=== PATIENT | female | born 2000 | race Caucasian/White ===

== ENCOUNTER → 2025-07-20 08:45 | Outpatient (BNV) | payer MEDICARE, MEDICAID, SELFPAY | PROVIDERS: Visit Provider Registered Nurse | DX: F33.9 Major depressive disorder, recurrent, unspecified (principal); F41.1 Generalized anxiety disorder; F43.10 Post-traumatic stress disorder, unspecified; F90.9 Attention-deficit hyperactivity disorder, unspecified type | CPT/HCPCS: 90792 ==

== ENCOUNTER 2025-07-25 08:36 | Outpatient (REF) | payer MEDICARE, MEDICAID, SELFPAY ==
--- NOTE | 2025-07-25 08:43 | ECG_ITS ---
Test Reason : qtc check Blood Pressure : */* mmHG Vent. Rate : 95 BPM Atrial Rate : 95 BPM P-R Int : 122 ms QRS Dur : 70 ms QT Int : 344 ms P-R-T Axes : 76 61 77 degrees QTcB Int : 432 ms Normal sinus rhythm Normal ECG No previous ECGs available Referred By: Bettye Chung Electronically Signed By: DIONE ZAMUDIO
--- OUTSIDE RECORDS SUMMARY | 2025-07-25 09:03 | XMS_ITS ---
Author Name [facility] Organization Unknown Care Team Organization Name Specialty Phone Email Start Date End Da te [facility] ACO 06/14/2025 [facility] Ameena Ugalde Primary [facility] 07/02/2023 024 [facility] Jessica Neely Primary [facility] 11/03/2022
[2025-07-25 09:08] LABS: MANUAL DIFF FLAG NO
[2025-07-25 09:16] LABS: Hematocrit 39.1 % (37.0-47.0); Hemoglobin 13.2 g/dl (12.0-16.0); Imm Gran Abs Auto 0.04 X10*3/uL (0.00-0.03); Imm Gran Pct Auto 0.4 % (0.0-0.4); Lymphocytes Absolute Auto 1.7 X10*3/uL (1.2-4.9); Mean Corpuscular HGB Conc 33.8 g/dl (31.0-35.0); Mean Corpuscular Hemoglobin 30.1 pg (27.0-33.0); Mean Corpuscular Volume 89.1 fL (80.0-98.0); NRBC Abs Auto 0.000 X10*3/uL (0.0-0.012); NRBC Pct Auto 0.0 /100WBC (0.0-0.2); Platelet Count 234 X10*3/uL (160-400); Red Blood Count 4.39 X10*6/uL (4.20-5.50); White Blood Count 9.9 X10*3/uL (4.8-10.8)
[2025-07-25 10:01] LABS: Alanine Aminotransferase 19 U/L (0-31); Albumin Level 5.0 g/dL (3.5-5.0); Alkaline Phosphatase 43 U/L (39-117); Anion Gap 10 (12-20); Aspartate Amino Transferase 19 U/L (5-31); Blood Urea Nitrogen 8 mg/dL (9-16); Calcium 9.5 mg/dL (8.4-10.2); Carbon Dioxide 26 mmol/L (22-29); Chloride 107 mmol/L (96-108); Cholesterol 145 mg/dL (<200); Estimated Glomerular Filt Rate > 60; HDL Cholesterol 37 mg/dL (>40); Iron 88 mcg/dL (30-160); Magnesium 1.9 mg/dL (1.6-2.6); Percent Iron Saturation 31 % (15-50); Potassium 4.0 mmol/L (3.3-5.1); Sodium 139 mmol/L (135-145); Total Iron Binding Capacity 284 mcg/dL (228-428); Total Protein 7.7 g/dL (6.5-8.0); Triglycerides 92 mg/dL (<150); Unsaturated Iron Binding 196 ug/dL
[2025-07-25 10:13] LABS: Syphilis Screen Nonreactive (Nonreactive)
[2025-07-25 10:15] LABS: HBS Num1 0.29 mIU/mL (0-7.99); HBc Num1 0.07 S/CO (0.00-0.79); HBsAGNum1 0.35 S/CO (0.00-0.99); HIV Num 1 0.05 S/CO (0.00-0.99); Hepatitis B Surface Antigen Negative (Negative); ~HepC Num1 0.08 S/CO (0.00-0.79); ~Hepatitis B Surface Antibody NONREACTIVE (Nonreactive); ~Hepatitis C Antibody Nonreactive (Nonreactive)
[2025-07-25 10:16] LABS: Free T4 (Free Thyroxine) 0.95 ng/dL (0.71-1.85); Thyroid Stimulating Hormone 0.68 uIU/mL (0.32-4.0)
[2025-07-25 10:24] LABS: Appearance Urine Clear; Glucose Urine UA Negative (Negative); PH 5.5 (5.0-9.0); Specific Gravity - Urine 1.020 (1.005-1.025)
[2025-07-25 10:27] LABS: UPreg QC Valid YES
[2025-07-25 10:28] LABS: Folate 14.0 ng/mL (> or = 4.0); Vitamin B12 466 pg/mL (200-900)
[2025-07-25 11:34] LABS: CT PCR Urine NOT DETECTED (Not Detect.); NG PCR Urine NOT DETECTED (Not Detect.)
== END 2025-07-25 08:37 | disposition home or self-care (01) ==
LOC: HO.LAB 08:36
PROVIDERS: Visit Provider Psychiatry & Neurology Psychiatry
DX: Z13.6 Encounter for screening for cardiovascular disorders (principal); F39 Unspecified mood [affective] disorder; Z13.1 Encounter for screening for diabetes mellitus; Z11.4 Encounter for screening for human immunodeficiency virus [HIV]; Z20.2 Contact with and (suspected) exposure to infections with a predominantly sexual mode of transmission
CPT/HCPCS: 80053; 80061; 81003; 81025; 82306; 82607; 82746; 83036; 83090; 83540; 83735; 84425; 84439; 84443; 85025; 85652; 86704; 86706; 86780; 86803; 87340; 87389; 87491; 87591; 93005

== ENCOUNTER → 2025-07-25 08:43 | Outpatient (BNV) | payer MEDICARE, MEDICAID, SELFPAY | PROVIDERS: Visit Provider Internal Medicine | DX: Z13.6 Encounter for screening for cardiovascular disorders (principal) | CPT/HCPCS: 93010 ==

== ENCOUNTER 2025-08-10 08:45 | Outpatient (RCR) | payer MEDICARE, MEDICAID, SELFPAY ==
[2025-07-17 12:01] VITALS: BMI 24.0
[2025-07-17 12:02] VITALS: BP 88/58; PULSE 64; TEMP 37.1
--- NOTE | 2025-07-17 14:43 | PC.ADMIT ---
Patient is a 25 year old single female who self referred to [facility] secondary to increased depression and anxiety since recent break up with her boyfriend of two years whom she lived with most of the time. Stated she thinks about the break up all the time and feels overwhelmed. Stated she feels she lost herself in the process. Patient is alert and oriented x4. She is calm and cooperative. She presented with depressed mood and anxious affect. She denied SI, no HI. She was given a copy of her safety plan if needed. Medications updated with patient and patient's pharmacy. Patient reports taking medications as prescribed. Patient reports using marijuana daily. Does not want to stop using at this time. Patient has a job interview after program today. Living with mother and grandmother and two brothers and his girlfriend. Stated she normally lives with her aunt however she is staying with her mother temporarily for more support.
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
--- NOTE | 2025-07-20 15:19 | HO.PHP ---
Client's case was opened and reviewed in teams.
--- NOTE | 2025-07-24 15:15 | HO.PHP ---
Mold Checker spoke with [facility]- intake appointment for therapy set up for 07/27 at 1500 Mold Checker spoke with Marylin, she is aware of the appointment and reported that she is hopeful to starting treatment.
--- NOTE | 2025-07-26 19:55 | HO.PS.ADMBH ---
HPI Date of Service: 07/24/25 Chief Complaint: anxiety,depression Sources of Information: patient interviewed, chart reviewed and crisis/core team assessment reviewed HPI Past Psychiatric History: Denies history of inpatient psychiatric hospitalizations. Denies history of SA/SIB. Does not have outpatient psychiatric providers at this time. [facility] Medical History (Updated 07/24/25 @ 08:33 by Kinga Go, RN) Factor 5 Leiden mutation, heterozygous Fatty liver Asthma Sleep apnea Lumbar degenerative disc disease Diet-controlled diabetes mellitus Surgical History (Updated 07/17/25 @ 11:59 by Kinga Go RN) Hx of cholecystectomy History of discectomy History of tonsillectomy and adenoidectomy Family History: Grandma(maternal)- schizophrenia Brother-schizophrenia Father- bipolar ( when patient was 11y/o from leukemia) Social History: Lives with aunt. Single. No kids. Unemployed. Highest level of education completed 9th grade. Did not obtain GED. Trauma History: Yes Diagnostics Vital Signs (24Hr): BMI result Body Mass Index 24.0 Meds/Allergies Meds Home Medications ?Medication ?Instructions ?Recorded ?Confirmed ?Type hydroxyzine HCl 25 mg tablet 25 mg PO QID PRN anxiety 07/17/25 07/17/25 History nitrofurantoin 1 cap PO BID 07/17/25 07/17/25 History monohydrate/macrocrystals 100 mg capsule Allergies Allergies Allergy/AdvReac Type Severity Reaction Status Date / Time shellfish derived (shellfish) Allergy Hives,faint Verified 07/17/25 12:01 . Assessment & Plan Certification I certify that partial hospital treatment is medically necessary due to the symptoms and problems resulting from the patient's mental illness and the failure to treat the patient at the partial hospital level of care would likely result in the patient requiring inpatient psychiatric care which could not be prevented at a less intensive level of care. Time Spent With Patient Time: Total time managing care of this patient today ____ minutes.
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
--- NOTE | 2025-07-27 13:07 | PC.NURSE ---
Patient made a new PCP appointment with [facility] at [address] [place] [address], [place], [place]. with Dr. Orlando Lopez on September 07, 2025 at 1:00pm. Office Number [phone].
--- NOTE | 2025-08-04 12:01 | P.PNPSP_ITS ---
Subjective Subjective Date of Service: 08/03/25 Reason For Visit: anxiety,depression Interim History: Patient reporting anxiety is severe, lots of body complaints, shakiness, nausea due to heart racing. Impacting appetite, been difficult to eat. Is visibly shaky, hydroxyzine not helping if increase dose gets sleepy and still anxious. Had a panic attack this morning, common occurence. COntinues with emotional dysreuglation, mood swings, irritability, tearfulness. DEnies any h/h/SI. No thoughts of SIB. Sleep variable. She still has not started on ABilify, but finally picked it up this morning and will start at 1/2 tablet and increas as tolerated. SHe has history of asthma but this is stable, so will start prn propanolol to help with racing heart. If still struggling may take a clonazepam 1/2 tablet. Risk, benefit, side effects reviewed. Avoid alcohol patient denies any alcohol or substance use aside from regular cannabis use. Medication Compliance: No Side effects from medications: No Attending Groups: Yes Review of Systems Acute medical concerns: No Mental Status Exam Mental Status Exam Patient Appearance: Well Grooomed Patient Orientation: Person, Place, Time and Situation Level of Consciousness: Awake and Alert Patient Behavior: Appropriate, Cooperative and Good Eye Contact Mood Description: Depressed and Anxious Affect Description: Apprehensive Ability to Follow Directions: Good Speech Pattern: Clear Memory Description: Intact Thought Process: Racing and Rumination Thought Content: positive for Circumstantial Depressive Symptoms: Increased Anxiety Judgement: Good Diagnostics Vital Signs (24Hr): Vital Signs - 24 hr 08/04/25 12:59 Pulse Rate 84 Blood Pressure 100/68 BMI result Body Mass Index 24.0 Assessment & Plan Assessment & Plan (1) MDD (major depressive disorder), recurrent episode: Status: Acute Code(s): F33.9 - Major depressive disorder, recurrent, unspecified (2) HAILEE (generalized anxiety disorder): Status: Acute Code(s): F41.1 - Generalized anxiety disorder (3) PTSD (post-traumatic stress disorder): Status: Acute Code(s): F43.10 - Post-traumatic stress disorder, unspecified (4) ADHD: Status: Acute Code(s): F90.9 - Attention-deficit hyperactivity disorder, unspecified type Plan Patient is a 25-year-old female with hx of MDD, HAILEE, PTSD and ADHD, who self- referred to [facility] due to increased depression and anxiety secondary to a romantic relationship ending 2 weeks ago. Plan: start Abilify at 1 mg then increase to 2 mg qd start propranolol 5 mg BID, consider incr to 10 mg BID if tolerated offer clonazepam 0.25-0.5 mg prn anxiety attack, for next few days, will not continue on once ABilify therapeutic engage in milieu continue to monitor Patient educated on: diagnosis and medication risk/benefits Informed Consent: understands Reason for contiued partial hosp. stay Substantial Risk for: inability to function and med/psych decompensation Certification I certify that partial hospital treatment is medically necessary due to the symptoms and problems resulting from the patient's mental illness and the failure to treat the patient at the partial hospital level of care would likely result in the patient requiring inpatient psychiatric care which could not be prevented at a less intensive level of care. Total time managing care of this patient today _30___ minutes. Discharge Plan Discharge Attending provider: Bettye Chung Additional Instructions: New PCP appointment with [facility] at [address] [place] [address] Orlando Lopez on September 07, 2025 at 1:00pm. Office Number [phone]. Medications: New cholecalciferol (vitamin D3) [Vitamin D3] 125 mcg (5,000 unit) tablet 125 mcg PO DAILY Qty: 30 2RF aripiprazole 5 mg tablet 5 mg PO BEDTIME Qty: 30 0RF Continued aripiprazole 2 mg tablet 2 mg PO BEDTIME Qty: 30 0RF Changed propranolol 10 mg tablet 5 mg PO TID Qty: 30 0RF Discontinued hydroxyzine HCl 25 mg tablet 25 mg PO QID PRN (Reason: anxiety) nitrofurantoin monohyd/m-cryst 100 mg capsule 1 cap PO BID Rx Instructions: TAKE 1 CAPSULE BY MOUTH TWICE A DAY FOR 5 DAYS Stand Alone Forms: Patient Portal Discharge page Patient Education: Mood Disorders (ED), Mood Disorders (DC), PTSD (Post Traumatic Stress Disorder) (DC), Anxiety (ED) Print Language: Gambian
[2025-08-04 12:59] VITALS: BP 100/68; PULSE 84
--- NOTE | 2025-08-09 16:46 | HO.PHPPROGNO ---
Subjective Subjective Date of Service: 08/08/25 Reason For Visit: anxiety,depression Interim History: Patient seen for follow-up. She is wondering if the medicaiton could work this quickly, feeling more regulated, not as quickly tearful or irritable. Denies any side effects. ANxiety still high. She picked up both clonazepam and propranolol has not yet started either med but will do so today. Forgot how to take the propranolol and clonazepam and asked for clarification. at this point will not start clonazepam, as patient is not really interested, seeing as she has been feeling a little calmer. Denies any thoughts of harming self or others. Medication Compliance: Intermittent Side effects from medications: No Attending Groups: Yes Review of Systems Acute medical concerns: No Mental Status Exam Mental Status Exam Narrative: Alert, oriented, in no acute distress. Calm, cooperative, engaged. No psychomotor agitation or neurovegetative retardation. Eye contact maintained. Mood anxious, affect variable, brighter mood congruent. Speech normal. Thought process linear, coherent. Thought content related to stressors, denies any hopelessness or SI. Denies any aggressive ideation or HI. No paranoia or delusional content elicited. No evidence of psychosis. Insight and judgment - fair but adequate. Patient Appearance: Well Grooomed Patient Orientation: Person, Place, Time and Situation Level of Consciousness: Awake and Alert Patient Behavior: Appropriate, Cooperative and Good Eye Contact Mood Description: Depressed and Anxious Affect Description: Appropriate Ability to Follow Directions: Good Speech Pattern: Clear Memory Description: Intact Diagnostics Vital Signs (24Hr): BMI result Body Mass Index 24.0 Assessment & Plan Assessment & Plan (1) MDD (major depressive disorder), recurrent episode: Status: Acute Code(s): F33.9 - Major depressive disorder, recurrent, unspecified (2) HAILEE (generalized anxiety disorder): Status: Acute Code(s): F41.1 - Generalized anxiety disorder (3) PTSD (post-traumatic stress disorder): Status: Acute Code(s): F43.10 - Post-traumatic stress disorder, unspecified (4) ADHD: Status: Acute Code(s): F90.9 - Attention-deficit hyperactivity disorder, unspecified type Plan Patient is a 25-year-old female with hx of MDD, HAILEE, PTSD and ADHD, who self-referred to [facility] due to increased depression and anxiety secondary to a romantic relationship ending 2 weeks ago. Plan: increase Abilify to 3.5 mg qd start propranolol at 5 mg BID, if no improvement (and no side effects) may try increase dose to 10 mg BID discont clonazepam engage in milieu continue to monitor Patient educated on: diagnosis and medication risk/benefits Informed Consent: understands Reason for contiued partial hosp. stay Substantial Risk for: med/psych decompensation Certification I certify that partial hospital treatment is medically necessary due to the symptoms and problems resulting from the patient's mental illness and the failure to treat the patient at the partial hospital level of care would likely result in the patient requiring inpatient psychiatric care which could not be prevented at a less intensive level of care. Total time managing care of this patient today __30__ minutes. Discharge Plan Discharge Attending provider: Bettye Chung Additional Instructions: New PCP appointment with [facility] at [address] [place] [address] Orlando Lopez on September 07, 2025 at 1:00pm. Office Number [phone]. Medications: New cholecalciferol (vitamin D3) [Vitamin D3] 125 mcg (5,000 unit) tablet 125 mcg PO DAILY Qty: 30 2RF aripiprazole 5 mg tablet 5 mg PO BEDTIME Qty: 30 0RF Continued aripiprazole 2 mg tablet 2 mg PO BEDTIME Qty: 30 0RF Changed propranolol 10 mg tablet 5 mg PO TID Qty: 30 0RF Discontinued hydroxyzine HCl 25 mg tablet 25 mg PO QID PRN (Reason: anxiety) nitrofurantoin monohyd/m-cryst 100 mg capsule 1 cap PO BID Rx Instructions: TAKE 1 CAPSULE BY MOUTH TWICE A DAY FOR 5 DAYS Stand Alone Forms: Patient Portal Discharge page Patient Education: Mood Disorders (ED), Mood Disorders (DC), PTSD (Post Traumatic Stress Disorder) (DC), Anxiety (ED) Print Language: [place] Citizen
[2025-08-10 13:17] VITALS: BP 94/60; PULSE 68
--- NOTE | 2025-08-10 22:36 | P.PNPSP_ITS ---
Subjective Subjective Date of Service: 08/10/25 Reason For Visit: anxiety,depression Interim History: Patient seen for follow-up, anticipating discharge at the end of program today.? More steady . Reports no acute issues or concerns. Medication compliant, medications well- tolerated. Denies any adverse effects.? Mood is stable.? Denies any hopelessness or SI. Denies thoughts of harming self or others at this time. Denies any aggressive ideation or HI. Denies any paranoia or AH or VH. Sleep, appetite, energy stable. Medication Compliance: Yes Side effects from medications: No Attending Groups: Yes Review of Systems Acute medical concerns: No Mental Status Exam Mental Status Exam Narrative: Alert, oriented, in no acute distress. Calm, cooperative. Mood stable, affect appropriate. Speech normal. Thought process linear, coherent, more goal- directed. Thought content related to stressors, future-oriented, denies any helplessness, hopelessness or SI.? No aggressive ideation or HI. No paranoia or delusional content elicited. No evidence of psychosis. Insight and judgment fair-good. Diagnostics Vital Signs (24Hr): BMI result Body Mass Index 24.0 Assessment & Plan Assessment & Plan (1) MDD (major depressive disorder), recurrent episode: Status: Acute Code(s): F33.9 - Major depressive disorder, recurrent, unspecified (2) HAILEE (generalized anxiety disorder): Status: Acute Code(s): F41.1 - Generalized anxiety disorder (3) PTSD (post-traumatic stress disorder): Status: Acute Code(s): F43.10 - Post-traumatic stress disorder, unspecified (4) ADHD: Status: Acute Code(s): F90.9 - Attention-deficit hyperactivity disorder, unspecified type Plan Discharge from [facility] Continue regular medications? Refills sent to pharmacy Will defer further medication management to outpatient provider *Safety plan reviewed *Discharge diagnoses, treatment course, discharge plan have been reviewed with patient (including medication regime, medication management, potential side effects) as well as treatment rationale were also revisited *Discharge paperwork signed and given to patient, copy sent for scanning to chart Patient educated on: diagnosis and medication risk/benefits Informed Consent: understands Reason for contiued partial hosp. stay Substantial Risk for: stable for discharge Certification I certify that partial hospital treatment is medically necessary due to the symptoms and problems resulting from the patient's mental illness and the fail ure to treat the patient at the partial hospital level of care would likely result in the patient requiring inpatient psychiatric care which could not be prevented at a less intensive level of care. Total time managing care of this patient today _30___ minutes. Discharge Plan Discharge Attending provider: Bettye Chung Additional Instructions: New PCP appointment with [facility] at [address] [place] [address] Orlando Lopez on September 07, 2025 at 1:00pm. Office Number [phone]. Medications: New cholecalciferol (vitamin D3) [Vitamin D3] 125 mcg (5,000 unit) tablet 125 mcg PO DAILY Qty: 30 2RF aripiprazole 5 mg tablet 5 mg PO BEDTIME Qty: 30 0RF Continued aripiprazole 2 mg tablet 2 mg PO BEDTIME Qty: 30 0RF Changed propranolol 10 mg tablet 5 mg PO TID Qty: 30 0RF Discontinued hydroxyzine HCl 25 mg tablet 25 mg PO QID PRN (Reason: anxiety) nitrofurantoin monohyd/m-cryst 100 mg capsule 1 cap PO BID Rx Instructions: TAKE 1 CAPSULE BY MOUTH TWICE A DAY FOR 5 DAYS Stand Alone Forms: Patient Portal Discharge page Patient Education: Mood Disorders (ED), Mood Disorders (DC), PTSD (Post Traumatic Stress Disorder) (DC), Anxiety (ED) Print Language: Romansh
== END 2025-08-10 23:59 | disposition home or self-care (01) ==
LOC: HO.PHPA 08:45
PROVIDERS: Visit Provider Psychiatry & Neurology Psychiatry
DX: F33.9 Major depressive disorder, recurrent, unspecified (principal); F41.1 Generalized anxiety disorder; F43.10 Post-traumatic stress disorder, unspecified; F90.9 Attention-deficit hyperactivity disorder, unspecified type
CPT/HCPCS: 90791; 90853

== ENCOUNTER 2025-09-07 13:00 | Outpatient (AMB) | payer MEDICARE, MEDICAID, SELFPAY ==
[2025-09-07 13:04] VITALS: BP 112/76; PULSE 78; TEMP 36.4; O2SAT 99; BMI 24.6
--- NOTE | 2025-09-07 13:04 | A.OFFPC_ITS ---
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 Medication List - Last Reconciled 09/07/25 by Orlando Diego MD aripiprazole 5 mg PO BEDTIME aripiprazole 2 mg PO BEDTIME cholecalciferol (vitamin D3) (Vitamin D3) 125 mcg PO DAILY clonazepam mg PO propranolol 5 mg (1/2 x 10 mg) PO TID Tobacco use date assessed: 09/07/25 Dental Screening Dental Screen Date: 09/07/25 Did you have a dental visit in the last 12 months?: No Did you have a dental problem in the last 6 months where you did not have access to dental care?: No Was dental information given to patient?: Patient has dentist HPI HPI Comments History of Present Illness Details The patient is a 25-year-old female with PMH of PCOS, factor 5 Leiden and DM presenting to counts include 234 beds at the [facility] care. To note the patient prefers seeing a female doctor so I ddressed the concerns she is comfortable sharing with me today until she follows up with Dr. Zuniga next week. Her primary concern is bilateral arm tingling occuring mainly at night. She is concerned she has poor circulation in her arms during sleep. She reports that her arms go completely numb, waking her up approximately every 20 minutes, and she is concerned something may be pinched. This is concerning to her due to a past history of spine surgery for a pinched nerve that cut off blood flow to her left leg for 11 months. She experiences a constant weird feeling in her shoulders due to them being curved forward but denies paresthesia during the day. The patient has a history of diabetes, having been diagnosed at a young age and dependent on insulin from age 12 or 13 for a couple of years. She subsequently made significant lifestyle changes, lost 60 pounds, and was told her diabetes was controlled by diet. She has a family history of diabetes on her father's side. Recently, she has been feeling lightheaded and feels her blood sugar has been high, although her home glucose checks do not correlate with her symptoms. Additional medical history includes Polycystic Ovary Syndrome (PCOS) and Factor V Leiden thrombophilia, which prevents her from taking medication for PCOS due to clotting risk as per her report. She also feels she may have a sensitivity to gluten. Regarding her mental health, the patient was previously in a four-week outpatient program where she was prescribed Abilify and clonazepam by a psychiatrist, and she reports significant improvement in her mood and a reduction in anxiety related to medical visits. She currently takes Abilify 7 mg, clonazepam, vitamin D, and propranolol. [facility] Medical History Factor 5 Leiden mutation, heterozygous Fatty liver Asthma Sleep apnea Lumbar degenerative disc disease Diet-controlled diabetes mellitus Surgical History Hx of cholecystectomy History of discectomy History of tonsillectomy and adenoidectomy Family History (Updated 09/07/25 @ 13:17 by Kerri Guillaume CMA) Maternal Grandmother Hypertension Maternal Grandfather Cancer Father Leukemia Mental health disorder Paternal Grandfather Skin cancer Social History (Updated 09/07/25 @ 13:14 by Kerri Guillaume CMA) Household Members: Family Housing: House Alcohol intake: never Comment: DC date 08/10/25 Patient Tobacco Use Status: Former Tobacco user e-Cigarette/Vaping Use: Currently Using Substance Use Type: Marijuana service: No Current occupational status: employed Current occupation: [employer] Cognitive needs: No Hearing needs: No Vision needs: Yes Questionnaire PHQ-9 Over the last 2 weeks, how often have you been bothered by any of the following problems? 1. Little interest or pleasure in doing things: not at all 2. Feeling down, depressed, or hopeless: not at all 3. Trouble falling or staying asleep, or sleeping too much: not at all 4. Feeling tired or having little energy: several days 5. Poor appetite or overeating: more than half the days 6. Feeling bad about yourself - or that you are a failure or have let yourself or your family down: several days 7. Trouble concentrating on things, such as reading the newspaper or watching television: nearly every day 8. Moving or speaking so slowly that other people could have noticed. Or the opposite - being so fidgety or restless that you have been moving around a lot more than usual: nearly every day 9. Thoughts that you would be better off or of hurting yourself in some way: not at all Total score: 10 Depression Screening Interpretation: Positive (On medications. ) Depression Screening Done: Yes 21188 - PHQ-9 Billing: Yes Source: Developed by Drs. James Neely, Yareli Ritter, Felipe Trammell and colleagues, with an educational naseem from [employer]. Thrive Questionnaire Date Thrive assessed: 09/07/25 I am a: Patient What is your living situation today?: I have a steady place to live Within the past 12 months, did the food you bought not last and you didn't have the money to get more?: Never true Within the past 12 months, did you worry whether your food would run out before you got money to buy more?: Never true Do you have trouble paying for medicines?: No Do you have trouble getting transportation to medical appointments?: No Do you have trouble paying your heating and electricity bill?: No Do you have trouble taking care of your child, family member or friend?: No Do you have trouble with day-to-day activities such as bathing, preparing meals, shopping, managing finances, etc.?: No Are you currently unemployed and looking for a job?: No Are you interested in more education?: Yes Please select the resources that you would like help with: Education Currently or been in a relationship where the following occur: Controlled Emotionally THRIVE Score: 1 AUDIT C Alcohol Use Questionnaire (AUDIT-C) 1. How often do you have a drink containing alcohol?: Never 3. How often do you have six or more drinks on one occasion?: Never Total Score: 0 HAILEE-7 AMB Questionnaire HAILEE-7 Date HAILEE - 7 assessed: 09/07/25 Feeling nervous, anxious, or on edge: 3 = Nearly every day Not being able to stop or control worryin = Nearly every day Worrying too much about different things: 3 = Nearly every day Trouble relaxin = Nearly every day Being so restless that it is hard to sit still: 3 = Nearly every day Becoming easily annoyed or irritable: 3 = Nearly every day Feeling afraid as if something awful might happen: 3 = Nearly every day Total HAILEE-7 score (0-4 normal; 5-9 mild; 10-14 moderate; 15-21 severe): 21 Source: Developed by Drs. James Neely, Yareli Ritter, Felipe Trammell and colleagues, with an educational naseem from [employer]. HAILEE-7 Assessment Billing HAILEE-7 Assessment Tool: HAILEE-7 Assessment 27429 Review of Systems Const Details: As per HPI. Physical exam (Primary Care) Vital Signs: Last Vital Signs Temp 97.5 F 09/07/25 13:04 Pulse 78 09/07/25 13:04 BP 112/76 09/07/25 13:04 Pulse Ox 99 09/07/25 13:04 Oxygen Delivery Method Room Air 09/07/25 13:04 BMI result Body Mass Index 24.6 Tobacco/Smoking Status: Tobacco use Status Tobacco use date assessed 09/07/25 09/07/25 13:23 Patient Tobacco Use Status Former Tobacco user 09/07/25 13:23 e-Cigarette/Vaping Use Currently Using 09/07/25 13:23 PHQ-9: PHQ-9 Score PHQ-9: Total score 10 09/07/25 13:53 Depression Screening Interpretation: Positive (On medications. ) Thrive Assessment: Date of Thrive Assessment Date Thrive assessed 09/07/25 09/07/25 13:23 Currently or been in a relationship where the following occur: Controlled Emotionally Const Other: Pertinent findings are in BOLD GENERAL APPEARANCE NAD, activity normal for age, well developed/ well nourished, no cyanosis, pallor, or diaphoresis. EYES lids/conjunctiva normal. EARS/NOSE/THROAT Mucous membranes moist, nares normal, lips/teeth normal uvula midline without oral pharyngeal erythema, exudate or swelling TMs normal bilaterally. No lymphangitis/lymphedema. HEAD/NECK normocephalic atraumatic, no facial trauma, neck is supple. RESPIRATORY respiratory effort normal, speaks in full sentences, no tripod position, no accessory muscle use. Lungs clear to auscultation without rhonchi, wheezes, rales CARDIAC Regular rate and rhythm, no edema. ABDOMINAL Soft, ND/NT. No evidence of fluid wave. No pulsatile masses on exam, rebound tenderness, Sanchez sign or pain over Mcburney's point. MUSCLES/EXTREMITIES No abnormal range of motion, no swelling. SKIN Warm, pink and dry. No rashes, dermatoses, petechiae or lesions. NEUROLOGICAL Speech is clear and appropriate. Normal level of consciousness. Gait and coordination are normal. 5/5 strength in all extremities. PSYCH Normal mood and affect. Judgement/competence is appropriate Results AMB Hemoglobin A1c AMB Hemoglobin A1c 5.5 % Last Edit by IGNACIO Hand on 09/07/25 14:04 Coding Level of Care Code New Pt Level 4 (71012) New Pt Prev Care 18-39yr(28777 Diagnoses Tingling of upper extremity R20.2 Healthcare maintenance Z00.00 Type 2 diabetes mellitus without complication, without long-term current use of insulin E11.9 Diabetes mellitus type: type 2 Diabetes mellitus continuous churn buttermaker insulin use: without group home use Diabetes mellitus complication status: without complication HAILEE (generalized anxiety disorder) F41.1 PCOS (polycystic ovarian syndrome) E28.2 Additional Codes HAILEE-7 Assessment Billing - HAILEE-7 Assessment Tool: HAILEE-7 Assessment 59942 ([id number]) PHQ-9 - 02106 - PHQ-9 Billing: Yes ([id number]) Assessment & Plan Assessment & Plan (1) Tingling of upper extremity: Code(s): R20.2 - Paresthesia of skin Category: Medical Plan: - To investigate the cause of arm numbness, an x-ray of the cervical and thoracic spine will be ordered. (2) Healthcare maintenance: Code(s): Z00.00 - Encounter for general adult medical examination without abnormal findings Category: Medical Plan: CBC, CMP, Lipid panel, A1C, TSH w T4, vit D. Recently checked. Will defer to Dr. Zuniga if she needs to repeat them. Shingles 2 doses when >50 yo. At 50. COVID: two doses. Declined. Tdap: most recently done in 2022. Next due in 2032. Pneumococcal: >50 yo. 18-49 with CKD, lung disease, weakened immune system, Heart disease, DM, cochlear implant. NI. Flu vaccine: Declined. Colonoscopy: 45-75. At 45. HPV: Referred to RASPER MACHINE OPERATOR. HIV: Will defer to Dr. Zuniga if she wants to check for it. HCV: Will defer to Dr. Zuniga if she wants to check for it. Dexa: Not due. Mammogram: Not due. (3) Diabetes mellitus: Code(s): E11.9 - Type 2 diabetes mellitus without complications Category: Medical Qualifiers: Diabetes mellitus type: type 2 Diabetes mellitus continuous churn buttermaker insulin use: without continuous churn buttermaker use Diabetes mellitus complication status: without complication Qualified Code(s): E11.9 - Type 2 diabetes mellitus without complications Plan: - An A1c test was performed in the office, with a result of 5.5%, indicating good glycemic control. - The patient does not require insulin at this time and can continue to manage her condition with diet. - The symptom of lightheadedness is likely a side effect of her medication, such as Abilify, rather than from hyperglycemia. (4) HAILEE (generalized anxiety disorder): Code(s): F41.1 - Generalized anxiety disorder Category: Medical Plan: - The patient reports her current medications are helping with her mood and anxiety. - A referral to psychiatry will be placed for ongoing medication management, as this is better handled by a specialist. - The patient does not currently need any medication refills. (5) PCOS (polycystic ovarian syndrome): Code(s): E28.2 - Polycystic ovarian syndrome Category: Medical Plan: - The patient will be referred to an GAS SUBSTATION OPERATOR for further management of PCOS. - Dietary modifications were advised, including weight loss and considering the elimination of sugars. Plan I discussed the patient's main concern of arm numbness and my plan to order an x-ray of her cervical and thoracic spine to investigate for a pinched nerve. We reviewed her complex diabetes history, and I reassured her that her in-office A1c of 5.5 is normal and she does not require insulin. I explained that her feelings of lightheadedness could be a side effect of her Abilify. We discussed her diagnoses of PCOS and Factor V, and I recommended she see an GAS SUBSTATION OPERATOR. I provided education on dietary modifications, such as avoiding sugar which may help with her PCOS symptoms and overall health. I also advised that while her psychiatric medications were prescribed by a psychiatrist in an outpatient program, ongoing management is best handled by a dedicated ps ychiatrist, and I will place a referral. I informed her that her appointment will be rescheduled with a female provider, Dr. Mckay, as per her preference. Orders: Orders XR cervical spine 2V Today R20.2 - Paresthesia of skin XR thoracic spine 2V Today R20.2 - Paresthesia of skin AMB Hemoglobin A1c Today E11.9 - Type 2 diabetes mellitus without complications Referrals GAS SUBSTATION OPERATOR Referral Z00.00 - Encounter for general adult medical examination without abnormal findings
== END 2025-09-07 14:04 | disposition home or self-care (01) ==
LOC: HO.HMCH 13:01
PROVIDERS: Visit Provider Internal Medicine
DX: R20.2 Paresthesia of skin (principal); E11.9 Type 2 diabetes mellitus without complications; F41.1 Generalized anxiety disorder; E28.2 Polycystic ovarian syndrome

== ENCOUNTER → 2025-09-07 13:00 | Outpatient (BNVA) | payer MEDICARE, MEDICAID, SELFPAY | PROVIDERS: Visit Provider Internal Medicine | DX: Z00.00 Encounter for general adult medical examination without abnormal findings (principal); E11.9 Type 2 diabetes mellitus without complications; E28.2 Polycystic ovarian syndrome; R20.2 Paresthesia of skin; F41.1 Generalized anxiety disorder; Z79.4 Long term (current) use of insulin | CPT/HCPCS: 83036; 96127; 99202 ==